=== PATIENT | female | born 1940 | race Two or more races ===

== ENCOUNTER 2023-01-03 08:02 | Emergency (ER) | payer OTHER ==
[~2023-01-03] VITALS: Ht 157.5 cm; Wt 50.0 kg
[2023-01-03] MEDS ORDERED: HYDROcodone-ACET 10/325MG TAB PO ONE (09:30)
[2023-01-03 11:00] VITALS: BP 118/68
[2023-01-03] MEDS ORDERED: HYDR-4902 PO (11:20)
== END 2023-01-03 11:29 | disposition home or self-care (01) ==
LOC: ER 08:02 → EDBD 08:02 → ER 11:29
DX: M51.36 Other intervertebral disc degeneration, lumbar region (principal); I10 Essential (primary) hypertension; J45.909 Unspecified asthma, uncomplicated; Z88.5 Allergy status to narcotic agent
CPT/HCPCS: 70450; 72131; 72192